=== PATIENT | male | born 1990 | race Caucasian/White ===

== ENCOUNTER 2016-06-21 09:32 | Inpatient (IN) | payer MEDICAID ==
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
[2016-06-21] MEDS ORDERED: NS 0.9% 1000 ML* 1,000 ML IV ONE (10:29)
[2016-06-21] MEDS ORDERED: Ondansetron ODT TAB* 4 MG PO ONE (10:29)
[2016-06-21] MEDS: Morphine INJ* 4 MG/ML 1 ML SYRINGE IV ONE ×2 (10:58→12:17)
[2016-06-21 11:13] LABS: Hematocrit 46 % (42-52); Hemoglobin 16.1 g/dl (14.0-18.0); Mean Corpuscular HGB Conc 35 g/dl (31-36); Mean Corpuscular Hemoglobin 31 pg (27-31); Mean Corpuscular Volume 88 fL (80-94); Mean Platelet Volume 7 um3 (7.4-10.4); Red Blood Count 5.28 10^6/ul (4.0-5.4); Red Cell Distribution Width 13 % (10.5-15); White Blood Count 15.6 10^3/ul (3.5-10.8)
[2016-06-21 11:25] LABS: ALT 9 U/L (7-52); AST 10 U/L (13-39); Alkaline Phosphatase 81 U/L (34-104); Amylase 17 U/L (29-103); Anion Gap 6 mmol/L (2-11); BUN/Creatinine Ratio 16.9 (8-20); Blood Urea Nitrogen 12 mg/dL (6-24); C Reactive Protein 86.64 mg/L (< 5.00); CO2 Carbon Dioxide 25 mmol/L (22-32); Calcium 9.2 mg/dL (8.6-10.3); Chloride 102 mmol/L (101-111); EGFR African American 172.5 (>60); EGFR Non-African American 134.1 (>60); Globulin 3.3 g/dL (2-4); Glucose 106 mg/dL (70-100); Lipase < 10 U/L (11.0-82.0); Potassium 4.1 mmol/L (3.5-5.0); Sodium 133 mmol/L (133-145); Total Protein 7.3 g/dL (6.4-8.9)
[2016-06-21] MEDS ORDERED: Morphine INJ* 4 MG/ML 1 ML SYRINGE ONE (12:16)
[2016-06-21 12:26] LABS: Urine Bilirubin Negative (Negative); Urine Glucose Negative (Negative); Urine Nitrite Negative (Negative)
[2016-06-21] MEDS ORDERED: Iohexol 300* (CONTRAST) 10 ML SDV IV ONE (12:26)
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
[2016-06-21] MEDS ORDERED: Ketorolac INJ* 30 MG/ML 1 ML VIAL IV ONE (14:01)
[2016-06-21] MEDS ORDERED: PPD Reading NOTE* (*USE PPD ORDER SET*) ONE (14:51)
[2016-06-21] MEDS ORDERED: Acetaminophen TAB* 325 MG PO PRN (14:58)
[2016-06-21] MEDS ORDERED: PPD test dose* 5 TU/0.1 ML TEST (*USE PPD ORDER SET*) INTRADERM SCH (15:00)
[2016-06-21] MEDS ORDERED: Tuberculin PPD* 5 TU/0.1 ML 0.1 ML INTRADERM ONE (15:00)
[2016-06-21] MEDS ORDERED: Docusate CAP* 100 MG PO PRN (15:00)
[2016-06-21] MEDS: cefTRIAXone VIAL(*) 1,000 MG in NS 0.9% 50 ML* 50 ML IVPB SCH ×2 (16:10→18:00)
[2016-06-21] MEDS: Azithromycin IV(*) 500 MG in NS 0.9% 250 ML* 250 ML IVPB SCH (16:18)
[2016-06-21] MEDS: oxyCODONE TAB* 5 MG TAB PO PRN ×2 (16:37→20:43)
[2016-06-21] MEDS ORDERED: Nicotine Inhaler* 10 MG AMP INH PRN (16:49)
[2016-06-21 17:07] LABS: Rapid HIV INT CONT QC Line Present; Rapid HIV Kit Lot# F308002
[2016-06-21 17:11] LABS: Manual Entry Verification BM
[2016-06-21] MEDS ORDERED: Mouth Piece, Nicotine* 1 EACH CARTRIDGE INH PRN (17:28)
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
[2016-06-21] MEDS: Ketorolac INJ* 15 MG/ML 1 ML VIAL IV PUSH PRN (19:45)
[2016-06-21] MEDS: Temazepam CAP* 15 MG PO PRN (23:59)
[2016-06-22] MEDS: oxyCODONE TAB* 5 MG TAB PO PRN ×4 (00:51→17:34)
[2016-06-22] MEDS: Ketorolac INJ* 15 MG/ML 1 ML VIAL IV PUSH PRN ×3 (05:15→19:55)
[2016-06-22 07:12] LABS: Hematocrit 42 % (42-52); Hemoglobin 14.5 g/dl (14.0-18.0); Mean Corpuscular HGB Conc 35 g/dl (31-36); Mean Corpuscular Hemoglobin 31 pg (27-31); Mean Corpuscular Volume 88 fL (80-94); Mean Platelet Volume 7 um3 (7.4-10.4); Red Blood Count 4.76 10^6/ul (4.0-5.4); Red Cell Distribution Width 13 % (10.5-15); White Blood Count 12.9 10^3/ul (3.5-10.8)
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
--- NOTE | 2016-06-22 15:51 | PN ---
Subjective Date of Service: 06/22/16 Interval History: Seen this AM with mother at bedside Right sided pleuritic chest pain continues. He denies any pain when lying still and if he does not take a breath. Feels SOB with exertion given inability to take deep breath. Abdominal pain managed. No hemoptysis since admission. Objective Active Medications: Acetaminophen (Tylenol Tab*) 650 mg PO Q4H PRN PRN Reason: FEVER/PAIN Device (Nicotine Mouth Piece*) 1 each INH ONCE PRN PRN Reason: CRAVINGS Last Admin: 06/21/16 17:57 Dose: 1 each Docusate Sodium (Colace Cap*) 100 mg PO BID PRN PRN Reason: CONSTIPATION Ceftriaxone Sodium 1,000 mg/ (Sodium Chloride) 50 mls @ 200 mls/hr IVPB Q24H MIKI Last Admin: 06/21/16 18:00 Dose: 200 mls/hr Azithromycin 500 mg/ Sodium (Chloride) 250 mls @ 250 mls/hr IVPB Q24H MIKI Last Admin: 06/21/16 16:18 Dose: 250 mls/hr Ketorolac Tromethamine (Toradol Inj*) 15 mg IV PUSH Q6H PRN PRN Reason: PAIN Last Admin: 06/22/16 11:25 Dose: 15 mg Nicotine (Nicotine Inhaler*) 10 mg INH Q2H PRN PRN Reason: CRAVING Last Admin: 06/21/16 17:57 Dose: 10 mg Oxycodone HCl (Roxycodone Tab*) 5 mg PO Q4H PRN PRN Reason: PAIN Last Admin: 06/22/16 13:04 Dose: 5 mg Pharmacy Profile Note (Ppd Reading Note*) 1 note .SEE ORDER ONCE ONE Stop: 06/23/16 15:01 Temazepam (Restoril Cap*) 15 mg PO BEDTIME PRN PRN Reason: INSOMNIA Last Admin: 06/21/16 23:59 Dose: 15 mg Vital Signs 06/21/16 06/21/16 06/21/16 15:56 16:37 20:00 Temperature 98.7 F Pulse Rate 89 Respiratory 18 18 18 Rate Blood Pressure 124/70 (mmHg) O2 Sat by Pulse 98 Oximetry 06/21/16 06/21/16 06/21/16 20:08 20:43 22:43 Temperature 98.5 F Pulse Rate 75 Respiratory 18 16 Rate Blood Pressure 112/55 (mmHg) O2 Sat by Pulse 95 Oximetry 06/21/16 06/22/16 06/22/16 23:50 00:51 04:01 Temperature 98.4 F 98.6 F Pulse Rate 71 78 Respiratory 16 16 17 Rate Blood Pressure 102/59 120/75 (mmHg) O2 Sat by Pulse 94 92 Oximetry 06/22/16 06/22/16 06/22/16 05:22 07:22 08:00 Temperature Pulse Rate Respiratory 18 16 16 Rate Blood Pressure (mmHg) O2 Sat by Pulse Oximetry 06/22/16 06/22/16 08:34 13:04 Temperature 98.6 F Pulse Rate 73 Respiratory 16 17 Rate Blood Pressure 105/64 (mmHg) O2 Sat by Pulse 93 Oximetry Oxygen Devices in Use Now: None Appearance: lying flat, nad Eyes: No Scleral Icterus, PERRLA Ears/Nose/Mouth/Throat: Clear Oropharnyx, Mucous Membranes Moist Neck: NL Appearance and Movements; NL JVP, Trachea Midline Respiratory: Symmetrical Chest Expansion and Respiratory Effort, - - decreased breathsounds, difficulty taking deep breath Cardiovascular: NL Sounds; No Murmurs; No JVD, RRR Abdominal: No Hepatosplenomegaly, - - mild RUQ tenderness, ND, no rebound/ guarding Lymphatic: No Cervical Adenopathy, No Axillary Adenopathy Extremities: No Edema, No Clubbing, Cyanosis Skin: No Rash or Ulcers, - - multiple scars on abdomen, no track [place] Neurological: Alert and Oriented x 3, NL Muscle Strength and Tone Result Diagrams: 06/22/16 06:34 06/21/16 10:55 Microbiology and Other Data: Microbiology 06/21/16 15:40 Aerobic Blood Culture - Preliminary Blood Venous No Growth Day 1 Anaerobic Blood Culture - Preliminary No Growth Day 1 06/21/16 15:30 Aerobic Blood Culture - Preliminary Blood Venous No Growth Day 1 Anaerobic Blood Culture - Preliminary No Growth Day 1 06/22/16 10:50 Gram Stain - Final Sputum Expectorated 06/22/16 10:50 Acid Fast Bacilli Smear - Final Respiratory - Sputum Assess/Plan/Problems-Billing Assessment: 25 yo h/o chronic abdominal pain p/w right sided pleuritic chest pain found with infiltrate as well as nodules on CT chest - Patient Problems (1) Chest pain Comment: Infiltrates concerning for CAP - c/w CTX/azithro Long standing hemptysis and night sweats concerning for TB - resp isolation, 3 AFPs Exposure to chicken coops - check urine histo Nodules on CT - consult pulmonology for eval of biopsy Appreciate ID assistance (2) Tobacco abuse Comment: nicotine replacement (3) History of bipolar disorder Comment: per chart review On no medications (4) DVT prophylaxis Comment: SCDs in setting of hemoptysis
[2016-06-22] MEDS: Azithromycin IV(*) 500 MG in NS 0.9% 250 ML* 250 ML IVPB SCH (15:56)
[2016-06-22] MEDS: cefTRIAXone VIAL(*) 1,000 MG in NS 0.9% 50 ML* 50 ML IVPB SCH (17:34)
[2016-06-22] MEDS: oxyCODONE/Acetamin 5/325 MG* TAB PO PRN (22:02)
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
[2016-06-22] MEDS: Temazepam CAP* 15 MG PO PRN (22:09)
[2016-06-23] MEDS: oxyCODONE/Acetamin 5/325 MG* TAB PO PRN ×3 (05:28→15:40)
[2016-06-23 05:52] LABS: Hematocrit 43 % (42-52); Hemoglobin 14.9 g/dl (14.0-18.0); Mean Corpuscular HGB Conc 35 g/dl (31-36); Mean Corpuscular Hemoglobin 30 pg (27-31); Mean Corpuscular Volume 87 fL (80-94); Mean Platelet Volume 7 um3 (7.4-10.4); Red Blood Count 4.93 10^6/ul (4.0-5.4); Red Cell Distribution Width 13 % (10.5-15); White Blood Count 11.8 10^3/ul (3.5-10.8)
[2016-06-23 06:06] LABS: BUN/Creatinine Ratio 14.3 (8-20); Calcium 9.8 mg/dL (8.6-10.3); EGFR Non-African American 110.5 (>60); Potassium 4.5 mmol/L (3.5-5.0)
[2016-06-23] MEDS: Ketorolac INJ* 15 MG/ML 1 ML VIAL IV PUSH PRN (08:25)
[2016-06-23 14:01] LABS: Arsenic 2 ng/mL (0-12); Cadmium 0.6 ng/mL (0.0-4.9); Mercury <1 ng/mL (0-9); Venous/Capillary Heavy Metals Venous
[2016-06-23] MEDS ORDERED: PPD Reading RESULTS NOTE ONE (15:00)
--- NOTE | 2016-06-23 15:11 | PN ---
Progress Note - Progress Note SOAP: Subjective: DOS: 06/23/16 CC: cough HPI: 25 yo man with chronic hemoptysis, recent right chest pain, worsening cough and hemoptysis and severe dyspnea. All improved today, no further hemoptysis here. Feels well, occasional right chest pain, 1x narcotic today. No fever, rash, or diarrhea. Objective: [] Vital Signs Temp 36.8 C 06/23/16 07:43 Pulse 83 06/23/16 07:43 Resp 16 06/23/16 10:41 BP 113/75 06/23/16 07:43 Pulse Ox 96 06/23/16 07:43 Intake & Output 06/22/16 06/23/16 06/23/16 18:59 06:59 18:59 Intake Total 1944 960 Balance 1944 960 Intake: IV Fluids 25 NS (0.9%) 25 IVPB 240 ABX - AZITHROMYCIN 240 Oral 1680 960 Other: Estimated Void Medium # Bowel Movements 0 Estimated Stool Amount Medium # Voids 3 Gen:Awake, Ox3 HEENT:PERRL, MMM Neck:supple Heart:RRR no murmur Lungs:CTA BL Abd:+BS NTND soft Skin: no rash, left forearm TST 0 mm induration or erythema MSK: no spine tenderness or joint synovitis Laboratory Results - last 24 hr 06/21/16 06/21/16 06/23/16 10:55 15:30 05:42 WBC 11.8 H RBC 4.93 Hgb 14.9 Hct 43 MCV 87 MCH 30 MCHC 35 RDW 13 Plt Count 255 MPV 7 L Neut % (Auto) 68.5 Lymph % (Auto) 17.0 L [place] % (Auto) 10.9 H Eos % (Auto) 2.9 Baso % (Auto) 0.7 Absolute Neuts (auto) 8.1 H Absolute Lymphs (auto) 2.0 Absolute Monos (auto) 1.3 H Absolute Eos (auto) 0.3 Absolute Basos (auto) 0.1 Absolute Nucleated RBC 0 Nucleated RBC % 0 Sodium Potassium Chloride Carbon Dioxide Anion Gap BUN Creatinine Est GFR ( Amer) Est GFR (Non-Af Amer) BUN/Creatinine Ratio Glucose Calcium Guardian First Name Rick Guardian Last Name Pereira Faustino/[employer] Venous Arsenic 2 Cadmium 0.6 Lead 3.1 Mercury <1 Patient Race White Hepatitis C Antibody Low reactive H 06/23/16 05:42 WBC RBC Hgb Hct MCV MCH MCHC RDW Plt Count MPV Neut % (Auto) Lymph % (Auto) [place] % (Auto) Eos % (Auto) Baso % (Auto) Absolute Neuts (auto) Absolute Lymphs (auto) Absolute Monos (auto) Absolute Eos (auto) Absolute Basos (auto) Absolute Nucleated RBC Nucleated RBC % Sodium 138 Potassium 4.5 Chloride 104 Carbon Dioxide 27 Anion Gap 7 BUN 12 Creatinine 0.84 Est GFR ( Amer) 142.0 Est GFR (Non-Af Amer) 110.5 BUN/Creatinine Ratio 14.3 Glucose 100 Calcium 9.8 Guardian First Name Guardian Last Name Home Phone Faustino/[employer] Heavy Metal Arsenic Cadmium Lead Mercury Patient Race Hepatitis C Antibody Microbiology 06/23/16 06:45 Respiratory - Sputum Acid Fast Bacilli Smear - Final 06/21/16 15:40 Blood Venous Aerobic Blood Culture - Preliminary No Growth Day 1 06/21/16 15:40 Blood Venous Anaerobic Blood Culture - Preliminary No Growth Day 1 06/21/16 15:30 Blood Venous Aerobic Blood Culture - Preliminary No Growth Day 1 06/21/16 15:30 Blood Venous Anaerobic Blood Culture - Preliminary No Growth Day 1 06/22/16 10:50 Sputum Expectorated Gram Stain - Final 06/22/16 10:50 Respiratory - Sputum Acid Fast Bacilli Smear - Final TST 0 mm Assessment: 1. right chest pain and dyspnea, improving ?CAP including viral vs recent significant bird guano exposure ? hypersensitivity reaction or Histo 2. chronic hemoptysis ?autoimmune, doubt MTb 3. HCV AB + Plan: 1. can change to levaquin 500 mg daily x5 more days 2. follow up with me to review final micro results and further HCV testing 35 minutes floor time >50% face to face with patient and mom discussing next steps in diagnostic testing and treatment, all questions answered.
[2016-06-23] MEDS: Azithromycin IV(*) 500 MG in NS 0.9% 250 ML* 250 ML IVPB SCH (15:38)
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
[2016-06-23 15:57] VITALS: BP 134/78
[2016-06-23] MEDS: cefTRIAXone VIAL(*) 1,000 MG in NS 0.9% 50 ML* 50 ML IVPB SCH (17:06)
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
--- NOTE | 2016-06-24 05:43 | DS ---
DISCHARGE SUMMARY: DATE OF ADMISSION: 06/21/16 DATE OF DISCHARGE: 06/23/16 PRIMARY CARE PROVIDER: Dr. Quintanilla. INFECTIOUS DISEASE: Dr. Mast. [employer]ER: Dr. Rome. PRINCIPAL DIAGNOSES: 1. Community-acquired pneumonia. 2. Pulmonary nodules of unclear significance. 3. Hemoptysis - ongoing for 2 years - unclear etiology. SECONDARY DIAGNOSES: 1. Possible bipolar disorder. 2. Chronic pain. DISCHARGE MEDICATIONS: 1. Levaquin 500 mg p.o. daily x5 days. 2. Oxycodone 5 mg p.o. q.4 hours p.r.n. pain, dispensed 18 tablets, no refills. HOSPITAL COURSE: Mr. Pereira is a 25-year-old male who has a history of chronic pain, past history of heroin abuse, and possible bipolar disorder, who presented to the emergency room with complaints of cough, hemoptysis, and right lower chest pain. The patient stated the pain in the right lower chest was unbearable. He stated that the hemoptysis has been ongoing for [address] of the abdomen and pelvis showed multiple pulmonary nodules and because of this, he was admitted. The patient was essentially treated for community-acquired pneumonia with ceftriaxone and azithromycin. Additionally, he began evaluation for possible tuberculosis given the pulmonary nodules and complaints of hemoptysis. The patient's PPD was negative at 48 hours and two acid-fast smears have been negative. The culture is pending and a third smear will be obtained prior to discharge. The patient was seen in consultation by Dr. Mast, who agreed with the workup for possible TB and treatment for community -acquired pneumonia. The patient has improved quite significantly over the last 2 days. His pain is much more tolerable and managed with Percocet. The patient feels that he is able to be discharged home today. He will continue on Levaquin for 5 more days. The patient will also follow up with Dr. Mast in the next 1 to 2 weeks for final culture data from the sputum samples as well as for the newly identified hepatitis C positive status. The patient was seen in consultation by Dr. Rome for the same complaints. She has recommended bronchoscopy with EBUS; however, it is felt that this is not urgent in nature and can be performed as an outpatient especially given the patient's improvement. The patient will be scheduled for bronchoscopy and EBUS as an outpatient. The patient's hepatitis C RNA quantitative study, histoplasma, urine antigen, microbacterial culture x2 are pending at the time of this dictation. The patient's sputum culture is also pending at the time of this dictation. Again, the patient will follow up with Dr. Rome and Dr. Mast in the next 1 to 2 weeks for followup of the final culture data and for bronchoscopy. FOLLOWUP CONCERNS: The patient is being discharged home today, 06/23/16. ACTIVITY: Activity level is as tolerated. DIET: Regular. CONDITION ON DISCHARGE: Stable. The patient should follow up with Dr. Quintanilla in the next 4 to 7 days. TIME SPENT: Thirty-five minutes was spent discharging this patient. CC: Dr. Quintanilla* [id number]/[facility] #: [id number] MTDD
== END 2016-06-23 23:49 | disposition home or self-care (01) | DRG 139 ==
LOC: ED 09:32 → MED 14:08
PROVIDERS: ADMIT Internal Medicine; ATTEND Hospitalist
DX: J18.8 Other pneumonia, unspecified organism (principal); R04.2 Hemoptysis; R91.8 Other nonspecific abnormal finding of lung field; F31.9 Bipolar disorder, unspecified; G89.29 Other chronic pain; B19.20 Unspecified viral hepatitis C without hepatic coma; F43.10 Post-traumatic stress disorder, unspecified; Z82.49 Family history of ischemic heart disease and other diseases of the circulatory system; Z83.49 Family history of other endocrine, nutritional and metabolic diseases; F17.210 Nicotine dependence, cigarettes, uncomplicated; R07.9 Chest pain, unspecified
CPT/HCPCS: 36415; 71260; 74177; 80048; 80053; 81003; 82150; 82175; 82300; 83655; 83690; 83825; 85025; 86140; 86703; 86803; 87040; 87070; 87116; 87205; 87206; 87385; 87522; A9270-GY; J0456; J0696; J1885; J2270; Q9967